=== PATIENT | male | born 1945 ===

== ENCOUNTER → 2024-03-03 06:45 | Outpatient (REF) | payer MEDICARE, SELFPAY ==
[2024-03-03] MEDS: LEXISCAN 0.4 MG IV (08:50)
[2024-03-03] MEDS: FLUSH (NSS) 1 FLUSH IV (08:50)
== END ==
LOC: RCS 06:45
PROVIDERS: ATTENDING PHYSICIAN Internal Medicine Cardiovascular Disease; FAMILY PHYSICIAN Internal Medicine
DX: R07.89 Other chest pain (principal); R42 Dizziness and giddiness
CPT/HCPCS: 78452; 93017; A9500; J2785